=== PATIENT | female | born 1990 | race American Indian/Alaskan Native ===

== ENCOUNTER 2019-08-18 16:52 | Emergency (ER) | payer MEDICAID, OTHER ==
[2019-08-18 17:33] VITALS: BP 128/90
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
[2019-08-18] MEDS ORDERED: ACETAMINOPHEN 500 MG TAB PO ONE (20:12)
[2019-08-18] MEDS ORDERED: IBUPROFEN 600 MG TAB PO ONE (20:12)
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
== END 2019-08-18 21:20 | disposition home or self-care (01) ==
LOC: ED 16:52
DX: M62.838 Other muscle spasm (principal); M62.830 Muscle spasm of back; M54.5 Low back pain; Z98.890 Other specified postprocedural states; Z79.1 Long term (current) use of non-steroidal anti-inflammatories (NSAID); Z79.899 Other long term (current) drug therapy; V49.59XA Passenger injured in collision with other motor vehicles in traffic accident, initial encounter; Y93.89 Activity, other specified; Y92.89 Other specified places as the place of occurrence of the external cause; Y99.8 Other external cause status
CPT/HCPCS: 72040; 72100; 99283